=== PATIENT | male | born 1960 | race Caucasian/White ===

== ENCOUNTER 2019-05-04 11:24 | Emergency (ER) | payer BC, SELFPAY ==
[2019-05-04 11:30] VITALS: BP 133/108; PULSE 96; RESP 18; TEMP 36.9; O2SAT 95
--- NOTE | 2019-05-04 12:08 | ED.NAVMDI ---
HPI - Nausea/Vomiting/Diarrhea General Chief complaint: Nausea/Vomiting/Diarrhea Stated complaint: vomiting/diarrhea Time Seen by Provider: 05/04/19 12:04 Source: patient and RN notes reviewed Mode of arrival: ambulatory Limitations: no limitations History of Present Illness HPI Narrative: A 58 y/o male presents to the ED with N/V/D since 7:30 PM last night. He states that he has vomited roughly every 45-60 minutes and has had roughly 8 episodes of diarrhea since his symptoms began. He reports associated sharp epigastric ABD pain and mild SOB. He denies any melena, bloody stools, fevers, chills, or CP. MD elicited complaint: nausea, vomiting and diarrhea Onset (ago): hour(s) (last night) Associated nausea: Yes Associated abdominal pain: Yes Location of pain: epigastric Quality: sharp Associated symptoms: shortness of breath (mild) Related Data Home Medications Medication Instructions Recorded Confirmed ibuprofen 600 mg tablet 600 mg PO Q6H PRN 01/08/19 02/12/19 Allergies Allergy/AdvReac Type Severity Reaction Status Date / Time No Known Allergies Allergy Mild Verified 05/04/19 11:59 Review of Systems Review of Systems: All systems reviewed & are unremarkable except as noted in HPI and below Constitutional: Constitutional: Denies chills and Denies fever(s) Cardiovascular: Cardiovascular: Denies chest pain Respiratory: Respiratory: Reports dyspnea (mild) Gastrointestinal: Gastrointestinal: Reports abdominal pain (epigastric), Denies melena, Denies hematochezia, Reports diarrhea, Reports nausea and Reports vomiting PMFSH Past Medical History Medical History Acute medial meniscus tear of right knee Aftercare following surgery (02/12/19) Arthritis Collar bone fracture Gastro-esophageal reflux disease without esophagitis GERD (gastroesophageal reflux disease) Hyperglycemia Low serum HDL Renal disease Ulcer Surgical History Surgical History H/O arthroscopy of left knee History of left knee surgery Family History Family History Mother Patient's mother is in good health Sibling Patient's sister is in good health Father Family history of Parkinson's disease Social History Social History Smoking status: Current every day smoker Second hand tobacco smoke exposure: Yes Alcohol intake: current Gender identity (if verbalized by the patient): Male Exam Const: General: healthy appearing and no acute distress Nutritional Appearance: well nourished HENMT: Mouth: Yes lip normal and Yes dry mucous membranes Eyes: Conjunctivae: conjunctivae normal Pupils: Equal, round and reactive pupils present Resp: Effort & Inspection: normal respiratory effort Auscultation: clear to auscultation bilaterally Cardio: Rate: regular rate Rhythm: regular rhythm Heart sounds: no murmurs GI: GI Palp: Yes Soft to palpation and No Tenderness to palpation present (GI) Auscultation: normal bowel sounds Back/Spine/Pelvis: Other: Full ROM. Skin: General skin exam: normal color, dry skin and other (warm) Neuro: General: patient oriented x3 (alert) Speech: normal speech Extrem: General: full ROM Psych: Mental Status: mental status grossly normal Affect: normal affect Course Vital Signs Vital signs: Vital Signs Temperature 36.9 C 05/04/19 11:30 Pulse Rate 96 05/04/19 11:30 Respiratory Rate 18 05/04/19 11:30 Blood Pressure 133/108 H 05/04/19 11:30 Pulse Oximetry 95 05/04/19 11:30 Temperature 37.1 C 05/04/19 14:17 Pulse Rate 83 05/04/19 14:17 Respiratory Rate 18 05/04/19 14:17 Blood Pressure 138/83 05/04/19 14:17 Pulse Oximetry 96 05/04/19 14:17 MDM - Nausea/Vomiting/Diarrhea MDM Narrative Medical decision making narrative: Feeling better after treatment. Tolerating PO. Diff
--- NOTE | 2019-05-04 12:18 | ECG_ITS ---
Measurements Intervals [place] Rate: 88 P: 56 [place]: 165 QRS: 33 QRSD: 86 T: 81 QT: 347 QTc: 422 Interpretive Statements SINUS RHYTHM BORDERLINE ST-T WAVE ABNORMALITY- INF/LAT LEADS BORDERLINE ECG Electronically Signed On 05-04-2019 14:15:28 INTERPERSONAL COMMUNICATIONS PROFESSOR by Abel Gant D.O.
[2019-05-04 12:33] LABS: Basophils Percent Auto 0.2 % (0.2-1.2); Hematocrit 45.8 % (42.0-52.0); Hemoglobin 15.6 g/dL (14.0-18.0); Immature Granulocyte Absolute 0.04 K/mm3 (0.00-0.031); Immature Granulocyte Percent A 0.3 % (0-0.5); Lymphocytes Absolute Auto 0.32 K/mm3 (0.9-3.2); Lymphocytes Percent Auto 2.5 % (18.3-44.2); Mean Corpuscular HGB Conc 34.1 g/dl (32-36); Mean Corpuscular Hemoglobin 29.7 pg (26-34); Mean Corpuscular Volume 87.1 fl (80-100); Mean Platelet Volume 10.3 fl (7.4-10.4); Monocytes Absolute Auto 0.4 K/mm3 (0.1-0.6); Monocytes Percent Auto 2.9 % (2.6-8.5); Neutrophils Absolute Auto 12.1 K/mm3 (1.3-6.7); Neutrophils Percent Auto 94.1 % (45.5-73.1); Platelet Count Result 249 k/mm3 (150-375); Red Blood Count 5.26 M/mm3 (4.6-6.20); Red Cell Distribution Width 12.5 % (11.5-14.5); White Blood Count 12.8 K/mm3 (4.5-10.0)
[2019-05-04] MEDS: PANTOPRAZOLE SODIUM IV 40 MG VIAL IV PUSH (12:33)
[2019-05-04] MEDS: SODIUM CHLORIDE 0.9% IV 2,000 ML 999 ML IV CONT (12:33)
[2019-05-04] MEDS: ONDANSETRON INJ 4 MG/2 ML VIAL IV PUSH (12:33)
[2019-05-04 12:37] VITALS: BP 132/95; PULSE 88; RESP 18; O2SAT 94
[2019-05-04 12:46] LABS: Alanine Aminotransferase 46 U/L (4-50); Alkaline Phosphatase 77 U/L (38-126); Aspartate Amino Transferase 36 U/L (17-59); Bilirubin,Total 1.5 mg/dL (0.2-1.3); Blood Urea Nitrogen 21 mg/dL (9-20); Calcium 9.8 mg/dL (8.4-10.2); Carbon Dioxide 23 mmol/L (22-30); Chloride 100 mmol/L (98-107); Estimated CRCL calculation 103 ml/min; Estimated Glomerular Filt Rate > 60; Glucose 144 mg/dL (75-110); Lipase 36 U/L (23-300); Potassium 3.8 mmol/L (3.4-5.0); Sodium 138 mmol/L (137-145)
[2019-05-04 13:00] LABS: Add Urine Microscopic? YES; Appearance Urine Clear (Clear); Bacteria Urine Trace /hpf; Bilirubin Urine Negative (Negative); Blood Urine Negative (Negative); Color Urine Yellow (Yellow); Glucose Urine UA Negative (Negative); Ketones Urine Trace mg/dL (Negative); Leukocyte Esterase Ur Negative LEU/UL (Negative); Mucus Urine Moderate /lpf; Nitrate Urine Negative (Negative); Protein Urine 1+ mg/dL (Negative); RBC Urine 0-2 /hpf (0-2); Squamous Epithelial Cell Urine Few /hpf (Few); Urobilinogen Urine Negative mg/dL (<2.0); WBC Urine 0-3 /hpf
[2019-05-04 13:03] LABS: Troponin I < 0.012 ng/mL (0.000-0.034)
[2019-05-04] MEDS: BELLADONNA ALK/PHENOB ELIX 10 ML, MAG HYDROX/ALUMINUM HYD/SIMETH 30 ML, LIDOCAINE HCL 2... PO (13:47)
[2019-05-04 13:49] VITALS: BP 140/85; PULSE 90; RESP 20; O2SAT 96
[2019-05-04 14:17] VITALS: BP 138/83; PULSE 83; RESP 18; TEMP 37.1; O2SAT 96
== END 2019-05-04 14:26 | disposition home or self-care (01) ==
PROVIDERS: Emergency Provider Emergency Medicine; PCP Internal Medicine
DX: K52.9 Noninfective gastroenteritis and colitis, unspecified (principal); M19.90 Unspecified osteoarthritis, unspecified site; K21.9 Gastro-esophageal reflux disease without esophagitis; N28.9 Disorder of kidney and ureter, unspecified; F17.290 Nicotine dependence, other tobacco product, uncomplicated
CPT/HCPCS: 36415; 80053; 81001; 83690; 84484; 85025; 93005; 96361; 96374; 96375; 99284; A9270; C9113; J2405; J7030

== ENCOUNTER → 2021-03-16 01:02 | Outpatient (CLI) | payer BC, SELFPAY ==
[2021-03-17 18:18] LABS: SARS-CoV-2 RNA PCR Positive
== END ==
PROVIDERS: PCP Internal Medicine; Visit Provider Internal Medicine
DX: U07.1 COVID-19 (principal)
CPT/HCPCS: C9803; U0003; U0005

== ENCOUNTER 2021-11-06 16:09 | Outpatient (CLI) | payer BC, SELFPAY ==
--- NOTE | ~2021-11-06 | XR_ITS ---
EXAMINATION: XR hand LT min 3V DATE: 11/06/2021 17:41 INDICATION: Pain at the fingers at the left hand TECHNIQUE: Posteroanterior, oblique and lateral views of the left hand were obtained. COMPARISON: None. FINDINGS: Bone alignment is normal. No fracture. Mild polyarticular osteoarthritis at the midcarpal, triscaphe, first carpometacarpal, first metacarpophalangeal and all of the interphalangeal joints. No erosions to suggest inflammatory arthritis. 2 mm thin curvilinear metallic foreign body in the soft tissues al mookie the radial aspect of the second middle phalanx. Mild periarticular soft tissue swelling at severa l of the interphalangeal joints. IMPRESSION: 1. Mild polyarticular osteoarthritis with typical distribution throughout the left hand. No acute oss eous abnormality. 2. Very small linear metallic foreign body in the soft tissues the radial aspect of the second middle phalanx. Reviewed, dictated and finalized at location A. IMPRESSION: 1. Mild polyarticular osteoarthritis with typical distribution throughout the l eft hand. No acute osseous abnormality. 2. Very small linear metallic foreign body in the soft tissues the radial aspec t of the second middle phalanx.
== END 2021-11-06 16:10 | disposition home or self-care (01) ==
LOC: ANHIMG 16:11
PROVIDERS: PCP Internal Medicine; Visit Provider Internal Medicine
DX: M79.89 Other specified soft tissue disorders (principal)
CPT/HCPCS: 73120; 73130

== ENCOUNTER → 2022-01-14 14:24 | Outpatient (CLI) | payer BC, SELFPAY ==
--- NOTE | ~2022-01-14 | XR_ITS ---
XR shoulder LT min 2V DATE: 01/14/2022 14:33 INDICATION: Left shoulder pain for one month. No injury. TECHNIQUE: 4 views COMPARISON: None FINDINGS: No fracture or dislocation, periosteal reaction or bone destruction or abnormal soft tissue calcification. Normal alignment at the acromioclavicular and glenohumeral joints. There is degenerative spurring of the thoracic spine. IMPRESSION: Negative left shoulder Reviewed, dictated and finalized at location A. [employer] IMPRESSION: Negative left shoulder
== END ==
PROVIDERS: PCP Internal Medicine; Visit Provider Internal Medicine
DX: M25.512 Pain in left shoulder (principal)
CPT/HCPCS: 73030

== ENCOUNTER 2022-05-14 08:20 | Emergency (ER) | payer BC, SELFPAY ==
--- NOTE | ~2022-05-14 | XR_ITS ---
EXAMINATION: XR chest 2V DATE: 05/14/2022 08:48 INDICATION: Cough and shortness of breath. TECHNIQUE: Frontal and lateral views of the chest were obtained on 3 radiographs. COMPARISON: Chest single view 05/25/2008, CT abdomen and pelvis 01/07/2006 FINDINGS: The chest demonstrates clear lungs without pneumonia, pleural effusion, or pneumothorax. Th e heart size is normal. IMPRESSION: 1. No acute cardiopulmonary disease. Reviewed, dictated and finalized at location A.
--- NOTE | 2022-05-14 08:25 | ED.GENADULT ---
HPI - General Adult General Chief complaint: Upper Respiratory Infection Stated complaint: cough,lightheaded Source: patient and RN notes reviewed History of Present Illness HPI narrative: 61 yo M presents to urgent care with at side. Pt states he began feeling poorly last with a cough. 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 Pt states he was wearing a respirator mask but the carbon monoxide alarms did go off. Pt states he went outside when the alarms went off and was feeling lightheaded but went back in when he felt better and continued working for about an hour. Pt states his cough has worsened over the weekend and he is feeling lightheaded. Pt states the lightheadedness is worse with coughing. Pt reports a sore throat as well as SOB. Reports a sore chest with coughing. Denies any VALLE[place], LOC, chest pain, or vomiting. Related Data Allergies Allergy/AdvReac Type Severity Reaction Status Date / Time No Known Allergies Allergy Mild Verified 05/14/22 08:33 Review of Systems Review of Systems: CONSTITUTIONAL: Denies fever, chills, or sweats. EYES: Denies visual changes, redness, or discharge. ENT: sore throat CARDIOVASCULAR: chest pain with coughing RESPIRATORY: cough and dyspnea. GASTROINTESTINAL: Denies abdominal pain, nausea, vomiting, or diarrhea. GENITOURINARY: Denies dysuria or hematuria. SKIN: Denies rash or itching. MUSCULOSKELETAL: Denies back pain, joint pain, or myalgia. NEUROLOGIC: lightheadedness [facility] Past Medical History Medical History (Updated 05/14/22 @ 09:04 by Sondra Willinhgam APRN) Acute medial meniscus tear of right knee Aftercare following surgery (02/12/19) Arthritis Collar bone fracture Gastro-esophageal reflux disease without esophagitis GERD (gastroesophageal reflux disease) Hyperglycemia Low serum HDL Renal disease Ulcer Surgical History Surgical History H/O arthroscopy of left knee History of left knee surgery Family History Family History Mother Patient's mother is in good health Sibling Patient's sister is in good health Father Family history of Parkinson's disease Social History Social History (Updated 01/14/22 @ 14:00 by Kanchan Key MA) Smoking status: Current some day smoker Second hand tobacco smoke exposure: Yes Alcohol intake: current Lack of Transportation: No Lack of Food: Never True Current Housing: Decline to Answer Concerned About Future Housing: Decline to Answer Difficulty Paying Gas/Electric Bills: Decline to Answer Difficulty Paying for Meds: Decline to Answer Currently Unemployed: Decline to Answer Education: Decline to Answer Difficulty w/ Childcare or Family Care: Decline to Answer Gender identity (if verbalized by the patient): Male Comments At the time of my signature, I reviewed and agree with the nursing past medical, surgical, social, and family history. There is no relevant family history pertinent to the patient complaint. Exam Narrative: GENERAL: This is a well-nourished, well-developed patient, in no apparent distress. HEAD: normocephalic, atraumatic. EYES: PERRL. Sclera clear/white. Vision is grossly intact. EARS: External ears normal, auditory canals clear and without drainage, TMs normal without perforation. Hearing grossly intact. NOSE: External nose normal with no obvious nasal discharge, nares without redness, no rhinorrhea. THROAT: Mucous membranes moist, posterior pharynx clear. NECK: Neck supple, non-tender without lymphadenopathy, masses or thyromegaly. CARDIOVASCULAR: Regular rate and rhythm without murmurs, gallops, or rubs. RESPIRATORY: Clear to auscultation. Breath sounds equal bilaterally. No wheezes, rales, or rhonchi. pt excessively coughing GASTROINTESTINAL: Abdomen soft, non-tender, nondistended. Bowel sound
[2022-05-14 08:29] VITALS: BP 123/98; PULSE 66; RESP 23; TEMP 36.3; O2SAT 96
[2022-05-14] MEDS: methylPREDNISolone SOD SUCC 125 MG VIAL IM (08:54)
[2022-05-14] MEDS: IPRATROPIUM BR 0.02% INH SOLN 0.5 MG/2.5 ML VIAL INHALATION (08:55)
[2022-05-14] MEDS: ALBUTEROL SULFATE NEB 2.5 MG/3 ML INH INHALATION (09:28)
[2022-05-14 09:41] VITALS: PULSE 63; RESP 19; O2SAT 97
== END 2022-05-14 09:41 | disposition home or self-care (01) ==
PROVIDERS: Emergency Provider Nurse Practitioner Family; PCP Internal Medicine
DX: J40 Bronchitis, not specified as acute or chronic (principal); J02.9 Acute pharyngitis, unspecified; Z20.822 Contact with and (suspected) exposure to COVID-19; F17.290 Nicotine dependence, other tobacco product, uncomplicated; M19.90 Unspecified osteoarthritis, unspecified site; K21.9 Gastro-esophageal reflux disease without esophagitis
CPT/HCPCS: 71046; 87081; 87426; 87804; 87880; 94640; 96372; 99213; C9803; G0463; J2930

== ENCOUNTER 2022-07-31 01:29 | Day surgery (SDC) | payer BC, SELFPAY ==
[2022-07-11 15:35] VITALS: BMI 28.5
--- NOTE | 2022-07-30 16:02 | PM.HPGS ---
History of Present Illness History of Present Illness Consent: Risks, benefits, and alternatives have been discussed and questions answered. Patient agrees to proceed with procedure. Chief complaint: neoplasm screening Narrative: Raghu Verdugo is a 61 year old male referred for colon cancer screening. His last colonoscopy was 10 years ago. Review of Systems Review of Systems: All systems reviewed & are unremarkable except as noted in HPI and below PMFSH Past Medical History Medical History Acute medial meniscus tear of right knee Aftercare following surgery (02/12/19) Arthritis Collar bone fracture Gastro-esophageal reflux disease without esophagitis GERD (gastroesophageal reflux disease) Hyperglycemia Low serum HDL Renal disease Ulcer Surgical History Surgical History H/O arthroscopy of left knee History of left knee surgery Family History Family History Mother Patient's mother is in good health Sibling Patient's sister is in good health Father Family history of Parkinson's disease Social History Social History Smoking packs per day: 0.25 Smoking cigarettes per day: 5.0 Years smoked: 20 Smoking pack-years: 5.00 Smoking status: Current some day smoker Second hand tobacco smoke exposure: Yes Alcohol intake: current Alcohol use details: socially Substance use: never Substance use type: does not use Lack of Transportation: No Current Housing: Decline to Answer Concerned About Future Housing: No Difficulty Paying Gas/Electric Bills: No Difficulty Paying for Meds: No Currently Unemployed: No Education: Trade/Vocational Certificate Difficulty w/ Childcare or Family Care: No Living arrangements: with family Gender identity (if verbalized by the patient): Male Spiritual care concerns: No Meds Home Medications and Allergies Home Medications Medication Instructions Recorded Confirmed Type albuterol sulfate 90 mcg/actuation 2 inh inhalation Q4-6H PRN 06/05/22 07/11/22 Rx aerosol inhaler (ProAir HFA) shortness of breath or wheezing #8.5 grams Allergies Allergy/AdvReac Type Severity Reaction Status Date / Time No Known Allergies Allergy Mild Verified 07/11/22 15:35 Exam Const: General: alert Orientation/consciousness: patient oriented x3 Resp: Auscultation: clear to auscultation bilaterally Cardio: Rhythm: regular rhythm GI: GI Palp: Yes Soft to palpation and No Tenderness to palpation present (GI) Neuro: General: patient oriented x3 Assessment and Plan Assessment and plan (1) Colon cancer screening: Code(s): Z12.11 - Encounter for screening for malignant neoplasm of colon Status: Acute Assessment and Plan: Colonoscopy with possible biopsy or polypectomy or cautery or injection of substances.
[2022-07-31 09:13] VITALS: BP 118/80; PULSE 70; RESP 18; TEMP 36; O2SAT 98
[2022-07-31] MEDS: LACTATED RINGERS 1,000 ML 150 ML IV CONT (09:23)
--- NOTE | 2022-07-31 10:12 | WPDANESEPPF ---
Anes - Initial Pre Proc Eval Procedure: Operation Date: 07/31/22 10:30 Proposed Procedures p Screening Colonoscopy - Leno Antunez MD Date/Time: 07/31/22 10:12 Surgeon: Leno Antunez MD Pre Op Diagnosis: neoplasm screening Patient Data Age: 61 Gender: M Height: 1.8 m Weight: 87.1 kg Last Vital Signs Temp 96.8 F L 07/31/22 09:13 Pulse 70 07/31/22 09:13 Resp 18 07/31/22 09:13 BP 118/80 07/31/22 09:13 Pulse Ox 98 07/31/22 09:13 O2 Del Method Room Air 07/31/22 09:13 Allergies Allergy/AdvReac Type Severity Reaction Status Date / Time No Known Allergies Allergy Mild Verified 07/11/22 15:35 Home Medications Medication Instructions Recorded Confirmed Type albuterol sulfate 90 mcg/actuation 2 inh inhalation Q4-6H PRN 06/05/22 07/11/22 Rx aerosol inhaler (ProAir HFA) shortness of breath or wheezing #8.5 grams Patient hx anesthesia problems: none Family hx anesthesia problems: none Results Review: All pre-operative results and documents have been reviewed as part of the pre-operative evaluation. [facility] Past Medical History Medical History Acute medial meniscus tear of right knee Aftercare following surgery (02/12/19) Arthritis Collar bone fracture Gastro-esophageal reflux disease without esophagitis GERD (gastroesophageal reflux disease) Hyperglycemia Low serum HDL Renal disease Ulcer Surgical History Surgical History H/O arthroscopy of left knee History of left knee surgery Family History Family History Mother Patient's mother is in good health Sibling Patient's sister is in good health Father Family history of Parkinson's disease Social History Social History Smoking packs per day: 0.25 Smoking cigarettes per day: 5.0 Years smoked: 20 Smoking pack-years: 5.00 Smoking status: Current some day smoker Second hand tobacco smoke exposure: Yes Alcohol intake: current Alcohol use details: socially Substance use: never Substance use type: does not use Lack of Transportation: No Current Housing: Decline to Answer Concerned About Future Housing: No Difficulty Paying Gas/Electric Bills: No Difficulty Paying for Meds: No Currently Unemployed: No Education: Trade/Vocational Certificate Difficulty w/ Childcare or Family Care: No Living arrangements: with family Gender identity (if verbalized by the patient): Male Spiritual care concerns: No Anes - Eval Final PreProcedure Day of Procedure 07/31/22 10:12 Patient weight: normal Heart: regular rate and rhythm Lungs: clear to auscultation Airway: Mallampati scale class II Neurological: alert and oriented Last oral intake: >/= 8 hours ASA classification: II Emergent: no Anesthetic plan: proceed Anesthesia type and monitoring: general GIVS and standard monitoring Results Review: All pre-operative results and documents have been reviewed as part of the pre-operative evaluation. Informed Consent: The patient's anesthetic plan and its attendant risks and benefits were discussed with the patient/family/POA. Questions were solicited and answers provided to the satisfaction of the patient/family/POA.
[2022-07-31] MEDS: SIMETHICONE ORAL SUSPENSION 20 MG/0.3 ML 30 ML BOTTLE 0.6 ML IRRIGATION (10:21)
[2022-07-31 10:36] VITALS: BP 103/64; PULSE 63; RESP 15; O2SAT 98
[2022-07-31 10:46] VITALS: BP 111/82; PULSE 57; RESP 17; O2SAT 100
[2022-07-31 10:56] VITALS: BP 112/82; PULSE 54; RESP 14; O2SAT 97
== END 2022-07-31 11:03 | disposition home or self-care (01) ==
PROVIDERS: PCP Internal Medicine; Visit Provider Internal Medicine Gastroenterology
PROC: 0DJD8ZZ Inspection of Lower Intestinal Tract, Via Natural or Artificial Opening Endoscopic (ICD-10-PCS; CPT 45378; principal; 2022-07-31 10:30)
DX: Z12.11 Encounter for screening for malignant neoplasm of colon (principal); K57.30 Diverticulosis of large intestine without perforation or abscess without bleeding; K62.1 Rectal polyp; K21.9 Gastro-esophageal reflux disease without esophagitis; Z79.51 Long term (current) use of inhaled steroids; F17.210 Nicotine dependence, cigarettes, uncomplicated
CPT/HCPCS: 45380; 88305; J2001; J2704; J7120

== ENCOUNTER 2022-09-24 08:22 | Outpatient (CLI) | payer BC, SELFPAY ==
--- NOTE | ~2022-09-24 | CT_ITS ---
EXAMINATION: CT abdomen pelvis wo con DATE: 09/24/2022 08:38 INDICATION: Left-sided abdominal pain intermittently for one year. TECHNIQUE: Computed tomography (CT) of the abdomen and pelvis was performed without intravenous contr ast. Automated exposure control and iterative reconstruction technique were employed. Exam dose: 590 .42 mGy-cm total exam DLP. COMPARISON: 05/15/2014 gallbladder ultrasound examination 01/07/2006 CT renal scan FINDINGS: Right lower lobe calcified pulmonary granuloma. The lung bases are clear of infiltrate or c onsolidation. Normal heart size. No pericardial or pleural effusion. The liver, gallbladder, bile ducts, spleen, pancreas, and adrenal glands are unremarkable. Approximately 3 cm upper pole left renal cyst Approximately 7 mm probable exophytic posterior lateral left upper pole renal cyst. Approximately 6 mm posterior lower pole right renal probable cyst No urinary tract calculi or hydroureteronephrosis. There is moderate diffuse thickening of the urinary bladder, likely due to moderately prominent prost atomegaly. There are bilateral fat-containing inguinal hernias. Normal caliber of the abdominal aorta. No intraperitoneal or retroperitoneal or pelvic mass lesion or adenopathy or ascites is detected. There are nonenlarged periaortic and aortocaval and mesenteric lymph nodes. Normal appendix. Diverticulosis of the colon; no CT evidence of diverticulitis. No bowel obstruction or intraperitoneal free air is detected. Degenerative changes of the thoracic and lumbar spine IMPRESSION: Bilateral probable cysts Normal appendix Diverticulosis of the colon; no CT evidence of diverticulitis Prostatomegaly Reviewed, dictated and finalized at Location A. Reviewed, dictated and finalized at location L.
== END 2022-09-24 08:23 | disposition home or self-care (01) ==
PROVIDERS: PCP Internal Medicine; Visit Provider Internal Medicine
DX: K57.30 Diverticulosis of large intestine without perforation or abscess without bleeding (principal); N40.0 Benign prostatic hyperplasia without lower urinary tract symptoms
CPT/HCPCS: 74176

== ENCOUNTER 2022-10-13 08:52 | Emergency (ER) | payer OTHER, BC, SELFPAY ==
--- NOTE | ~2022-10-13 | XR_ITS ---
EXAMINATION: XR ankle LT min 3V DATE: 10/13/2022 09:19 INDICATION: Left ankle pain TECHNIQUE: Anteroposterior, lateral, mortise, and additional oblique view of the ankle were obtained. COMPARISON: None. FINDINGS: There is anterior soft tissue swelling overlying the distal tibia and fibula. Bone alignmen t is normal. There is no fracture. Posterior and plantar calcaneal enthesophytes are noted. IMPRESSION: 1. No acute osseous abnormality. Reviewed, dictated and finalized at location A.
--- NOTE | ~2022-10-13 | XR_ITS ---
EXAMINATION: XR tibia fibula LT 2V INDICATION: Left leg pain TECHNIQUE: Two views of the left tibia and fibula are obtained on four radiographs COMPARISON: None available FINDINGS: Bone alignment is normal. There is no fracture. There is anterior soft tissue swelling of t he lower leg. Posterior and plantar calcaneal enthesophytes are noted. There is mild osteoarthritis o f the knee. IMPRESSION: 1. No acute osseous abnormality. Reviewed, dictated and finalized at location A.
[2022-10-13 09:00] VITALS: BP 127/80; PULSE 67; RESP 16; TEMP 37.2; O2SAT 100
--- NOTE | 2022-10-13 09:04 | ED.LOWEXIN ---
HPI - Extremity Injury (Lower) General Chief Complaint: Extremity Injury, Lower Stated Complaint: left ankle pain Time Seen by Provider: 10/13/22 10:03 Source: patient and RN notes reviewed Mode of arrival: ambulatory Limitations: no limitations History of Present Illness HPI Narrative: 62-year-old male presents with concern for crush injury to his left ankle. He reports he a tree branch fall on his ankle and he was trapped beneath that for about 15 minutes. Reports he tried to call 911 and was unable to get through, he finally was able to get through to his son who came and helped him. He reports pain at the ankle, he has a few abrasions to his left lower leg. complaint: leg injury Related Data Allergies Allergy/AdvReac Type Severity Reaction Status Date / Time No Known Allergies Allergy Mild Verified 10/13/22 09:08 Review of Systems Review of Systems: CONSTITUTIONAL: Denies malaise, chills, sweats, or fever. SKIN: Denies rash or itching, redness, warmth, swelling.. Reports abrasions to bilateral lower legs MUSCULOSKELETAL: Reports left lower leg and ankle pain NEUROLOGIC: Denies numbness, weakness All systems reviewed & are unremarkable except as noted in HPI and below PMFSH Past Medical History Medical History (Updated 10/13/22 @ 10:07 by Ama Ba NP) Acute medial meniscus tear of right knee Aftercare following surgery (02/12/19) Arthritis Collar bone fracture Gastro-esophageal reflux disease without esophagitis GERD (gastroesophageal reflux disease) Hyperglycemia Low serum HDL Renal disease Ulcer Surgical History Surgical History H/O arthroscopy of left knee History of left knee surgery Family History Family History Mother Patient's mother is in good health Sibling Patient's sister is in good health Father Family history of Parkinson's disease Social History Social History Smoking packs per day: 0.25 Smoking cigarettes per day: 5.0 Years smoked: 20 Smoking pack-years: 5.00 Smoking status: Current some day smoker Second hand tobacco smoke exposure: Yes Alcohol intake: current Alcohol use details: socially Substance use: never Substance use type: does not use Lack of Transportation: No Current Housing: Decline to Answer Concerned About Future Housing: No Difficulty Paying Gas/Electric Bills: No Difficulty Paying for Meds: No Currently Unemployed: No Education: Trade/Vocational Certificate Difficulty w/ Childcare or Family Care: No Living arrangements: with family Gender identity (if verbalized by the patient): Male Spiritual care concerns: No Comments At time of signature, agree with nursing past medical, surgical, social and family history. There is no relevant family history pertinent to the presenting complaint Exam Narrative: GENERAL: Well-appearing, well-nourished, and in no acute distress. HEAD: Normocephalic, atraumatic. EYES: PERRLA, conjunctivae clear NECK: Supple. CHEST: Speaks in full sentences. No respiratory distress. HEART: Regular rate and rhythm. Normal and equal peripheral pulses. EXTREMITIES: Left lower leg, ankle, foot, digits have grossly normal strength and sensation, normal range of motion. No edema or ecchymosis. Normal sensation with sensitivity to light touch and pain. Medial and lateral ankle tenderness. No open wounds, no skin tenting, no devitalized tissue or atrophy, no trophic changes, no obvious deformity, alignment normal, nearby joints and structures intact. Distal pulses palpable and equal bilaterally, skin warm, dry, pink. Capillary refill less than 3 seconds. No signs of compartment syndrome SKIN: Warm, dry, no rash. NEURO: Alert and oriented x3. PSYCH: Normal mood and affect Course Course Emergency Course: Patient do
== END 2022-10-13 10:20 | disposition home or self-care (01) ==
PROVIDERS: Emergency Provider Nurse Practitioner; PCP Internal Medicine
DX: S97.02XA Crushing injury of left ankle, initial encounter (principal); W20.8XXA Other cause of strike by thrown, projected or falling object, initial encounter; M19.90 Unspecified osteoarthritis, unspecified site; K21.9 Gastro-esophageal reflux disease without esophagitis; F17.210 Nicotine dependence, cigarettes, uncomplicated
CPT/HCPCS: 73590; 73610; 99214; G0463

== ENCOUNTER → 2022-10-23 08:05 | Outpatient (CLI) | payer BC, SELFPAY ==
--- NOTE | ~2022-10-23 | MR_ITS ---
EXAMINATION: MR knee LT wo con DATE: 10/23/2022 08:40 INDICATION: Unspecified internal derangement of left knee. Medial left knee pain. TECHNIQUE: Magnetic resonance imaging (MRI) of the left knee was performed without intravenous contra st. Sequences included axial PD-weighted FS FSE, coronal PD-weighted FSE and PD-weighted FS FSE, sagi ttal PD-weighted FSE, and sagittal T2-weighted FS FSE. COMPARISON: None. FINDINGS: Medial compartment: Medial meniscus is normal. There is shallow partial-thickness cartilage loss of tibial condyle and fe moral condyle. There is deep partial thickness cartilage loss of femoral condyle involving the centra l articular surface. Lateral compartment: Lateral meniscus is normal. Lateral compartment cartilage is normal. Patellofemoral compartment: There is deep partial-thickness cartilage loss of patellar medial facet with mild subchondral edema-l akshat marrow signal intensity and intra-articular osteophyte. There is shallow partial-thickness cartil age loss of patellar lateral facet. There is cartilage surface irregularity of trochlea. Ligaments and tendons: Anterior cruciate ligament is enlarged, consistent with mucoid degeneration. There are intraosseous g anglia in distal femur and proximal tibia near the anterior cruciate ligament attachments. Posterior cruciate ligament is enlarged with increased signal intensity, consistent mucoid degeneration. There is a complete tear of medial collateral ligament. There are changes of prior sprain of fibular collat eral ligament characterized by thickening and increased signal intensity. There is mild patellar tend inopathy. Fluid: There is a moderate-sized knee joint effusion. There is thickening of the medial plica. There is trac e fluid in a Jeffries's cyst. There is mild prepatellar and superficial infrapatellar bursitis. IMPRESSION: 1. Moderate chondrosis of medial and patellofemoral compartments. 2. Complete tear of medial collateral ligament. 3. Mucoid degeneration involving anterior cruciate ligament and posterior cruciate ligament. 4. Moderate-sized knee joint effusion. Reviewed, dictated and finalized at location A. IMPRESSION: 1. Moderate chondrosis of medial and patellofemoral compartments. 2. Complete tear of medial collateral ligament. 3. Mucoid degeneration involving anterior cruciate ligament and posterior cruci ate ligament. 4. Moderate-sized knee joint effusion.
== END ==
PROVIDERS: PCP Internal Medicine; Visit Provider Orthopaedic Surgery
DX: M23.92 Unspecified internal derangement of left knee (principal)
CPT/HCPCS: 73721

== ENCOUNTER 2023-05-23 13:24 | Outpatient (CLI) | payer BC, SELFPAY ==
--- NOTE | ~2023-05-23 | XR_ITS ---
Left Shoulder Technique: AP and scapular Y views were obtained. Clinical History: Pain Findings: No fracture or dislocation is seen. Osseous alignment is anatomic. The glenohumeral and acr omioclavicular joint spaces are preserved. Soft tissues are unremarkable. Impression: Unremarkable left shoulder radiographs. Reviewed, dictated and finalized at [facility]. Impression: Unremarkable left shoulder radiographs.
== END 2023-05-23 13:25 | disposition home or self-care (01) ==
PROVIDERS: PCP Internal Medicine; Visit Provider Orthopaedic Surgery
DX: M25.512 Pain in left shoulder (principal)
CPT/HCPCS: 73030

== ENCOUNTER 2023-06-25 16:14 | Emergency (ER) | payer BC, SELFPAY ==
--- NOTE | 2023-06-25 16:22 | ED.WOUNDLAC ---
HPI - Wound/Laceration General Chief Complaint: Wound/Laceration Stated Complaint: FINGER LACERATION Time Seen by Provider: 06/25/23 16:28 Source: patient and RN notes reviewed Mode of arrival: ambulatory Limitations: no limitations History of Present Illness HPI narrative: 62-year-old male presents with concern for laceration to the palmar aspect of the 2nd digit of the left hand. Reports he did it prior to arrival with a razor blade. He is not up-to-date on his tetanus vaccination Related Data Home Medications Medication Instructions Recorded Confirmed No Home Medications 10/18/22 06/16/23 Allergies Allergy/AdvReac Type Severity Reaction Status Date / Time No Known Allergies Allergy Mild Verified 06/16/23 10:03 Review of Systems Review of Systems: CONSTITUTIONAL: Denies malaise, chills, sweats, or fever. SKIN: Reports laceration to the 2nd digit of the left hand MUSCULOSKELETAL: Denies muscle skeletal pain NEUROLOGIC: Denies numbness, weakness All systems reviewed & are unremarkable except as noted in HPI and below PMFSH Past Medical History Medical History (Updated 06/25/23 @ 16:36 by Ama Ba NP) Acute medial meniscus tear of right knee Aftercare following surgery (02/12/19) Arthritis Collar bone fracture Gastro-esophageal reflux disease without esophagitis GERD (gastroesophageal reflux disease) Hyperglycemia Low serum HDL Renal disease Ulcer Surgical History Surgical History H/O arthroscopy of left knee History of left knee surgery Family History Family History Mother Patient's mother is in good health Sibling Patient's sister is in good health Father Family history of Parkinson's disease Social History Social History Smoking packs per day: 0.25 Smoking cigarettes per day: 5.0 Years smoked: 20 Smoking pack-years: 5.00 Smoking status: Current some day smoker Second hand tobacco smoke exposure: Yes Alcohol intake: current Alcohol use details: socially Substance use: never Substance use type: does not use Lack of Transportation: No Current Housing: Decline to Answer Concerned About Future Housing: No Difficulty Paying Gas/Electric Bills: No Difficulty Paying for Meds: No Currently Unemployed: No Education: Trade/Vocational Certificate Difficulty w/ Childcare or Family Care: No Living arrangements: with family Gender identity (if verbalized by the patient): Male Spiritual care concerns: No Comments At time of signature, agree with nursing past medical, surgical, social and family history. There is no relevant family history pertinent to the presenting complaint Exam Narrative: GENERAL: Well-appearing, well-nourished, and in no acute distress. HEAD: Normocephalic, atraumatic. EYES: PERRLA, conjunctivae clear ENT: Mucous membranes moist. NECK: Supple. No lymphadenopathy CHEST: Clear to auscultation. No respiratory distress. HEART: Regular rate and rhythm. SKIN: Warm, dry. 1.5 cm superficial laceration, linear, noted to the palmar aspect of the 2nd digit of the left hand. NEURO: Alert and oriented x3. PSYCH: Normal mood and affect Course Course Emergency Course: Patient is aware of diagnosis, understands and agrees to treatment plan. Anticipatory guidance given. Patient agrees to follow-up as directed and is aware of reasons to seek care at the emergency department. Portions of this record may have been created with voice recognition software Level of Care: Express Care Visit Vital Signs Vital signs: Reviewed. Procedures Laceration Laceration 1: Date: 06/25/23 Time: 16:34 Site: hand Side (If applicable): right Size (cm): 1.5 Description: linear Depth: simple, single layer
[2023-06-25 16:26] VITALS: BP 134/90; PULSE 65; RESP 16; TEMP 36.8; O2SAT 100
[2023-06-25 16:27] VITALS: BP 134/90; PULSE 65; RESP 16; TEMP 36.8; O2SAT 100
[2023-06-25] MEDS: TETANUS,DIPHTHERIA,AC PERTUSSIS ADULT (0.5 ML) BOOSTRIX IM (16:35)
== END 2023-06-25 16:48 | disposition home or self-care (01) ==
PROVIDERS: Emergency Provider Nurse Practitioner; PCP Physician Assistant
DX: S61.211A Laceration without foreign body of left index finger without damage to nail, initial encounter (principal); W26.8XXA Contact with other sharp object(s), not elsewhere classified, initial encounter; Z23 Encounter for immunization; F17.210 Nicotine dependence, cigarettes, uncomplicated; M19.90 Unspecified osteoarthritis, unspecified site; K21.9 Gastro-esophageal reflux disease without esophagitis
CPT/HCPCS: 12001; 90471; 90715; 99212; G0463

== ENCOUNTER 2023-06-28 07:30 | Outpatient (CLI) | payer BC, SELFPAY ==
--- NOTE | ~2023-06-28 | MR_ITS ---
EXAMINATION: MR shoulder LT wo con DATE: 06/28/2023 08:43 INDICATION: Impingement syndrome of left shoulder. Left shoulder pain. TECHNIQUE: Magnetic resonance imaging (MRI) of the left shoulder was performed without intravenous co ntrast. Sequences included axial PD-weighted FS FSE, coronal oblique PD-weighted FS FSE and T2-weight ed FS FSE, and sagittal oblique T2-weighted FS FSE and T1-weighted FSE. COMPARISON: Left shoulder radiographs 05/23/2023 FINDINGS: Coracoacromial arch: The acromion undersurface is curved in morphology (type II). There is severe acromioclavicular joint osteoarthritis. There is mild subacromial/subdeltoid bursitis. Rotator cuff: There is moderate supraspinatus tendinopathy. There is severe infraspinatus tendinopathy. There is an interstitial partial tear near the myotendinous junction measuring 14 mm anteroposterior by 15 mm pr oximal to distal by 70% tendon thickness. Teres minor tendon is normal. There is mild subscapularis t endinopathy. There is no asymmetric fatty atrophy of the rotator cuff muscle bellies. Biceps tendon and glenoid labrum: There is a partial tear of biceps tendon. Biceps tendon is in bicipital groove. There is degeneration of the glenoid labrum without well-defined tear. Fluid: There is a moderate-sized glenohumeral joint effusion. Bones/cartilage: There is shallow partial-thickness cartilage loss of glenoid and humeral head. IMPRESSION: 1. Partial tear of infraspinatus tendon. 2. Partial tear of biceps tendon. 3. Moderate sized glenohumeral joint effusion. 4. Mild glenohumeral joint chondrosis. 5. Severe acromioclavicular joint osteoarthritis. Reviewed, dictated and finalized at location E.
== END 2023-06-28 07:31 | disposition home or self-care (01) ==
PROVIDERS: PCP Physician Assistant; Visit Provider Physician Assistant Surgical
DX: M75.42 Impingement syndrome of left shoulder (principal); M19.012 Primary osteoarthritis, left shoulder; M25.412 Effusion, left shoulder
CPT/HCPCS: 73221

== ENCOUNTER 2023-09-09 01:43 | Day surgery (SDC) | payer MEDICARE, BC, SELFPAY ==
[2023-08-29 14:19] VITALS: BMI 26.5
--- NOTE | 2023-08-29 14:20 | PC.NURSE ---
Report to the Outpatient Waiting Room, entrance under the green pavilion located off [facility], at time _0830_ on date _[id number]_. Planned Procedure Time: _1030_. Time changes happen often and if your time is changed the preop area will call you the afternoon before. - You and your visitor will be asked to self-screen and do not enter if you have any COVID symptoms. - A mask is optional within the hospital at this time. Patients may have clear liquids (water, carbonated beverages, clear teas, apple juice) until 3 hours prior to surgery with a maximum of 20 ounces. - No food from midnight until time of surgery Take the following medications with a SIP of water the morning of surgery: ____None DO NOT STOP ANY OF YOUR OTHER PRESCRIPTION MEDICATIONS PRIOR TO SURGERY ?EXCEPT THE FOLLOWING Medications to discontinue per physician Ibuprofen Date to take last [id number] Please no make-up, nail maltese, hairspray, perfume, deodorant, or body powder the day of surgery. No jewelry (including any body piercings) or valuables the day of surgery, leave them at home. Please take a shower or bath the night before, or the morning of, surgery with an antibacterial soap. Wear comfortable, loose fitting clothing. - Jewelry must be removed prior to entering the operating room. Rings and piercings that are not removed may be cut off. - The hospital will not accept responsibility for valuables. - Please leave all valuables, including medications, at home the day of surgery. If you are going home after surgery, a licensed team cdl driver must drive you home. - NO public transportation without another adult if you receive anesthesia. - We recommend that an adult stay with you for 24 hours following discharge. - We also recommend that you do not drive, make important decision, drink alcoholic beverages, or take any drugs that were not prescribed by your health care provider for at least 24 hours after your discharge time. Follow any additional instructions given to you from your surgeon. If you or anyone in your household have experienced Covid symptoms in the past week, please notify your surgeon or the nurse liaison at the phone number below for possible testing. Telephone instructions given to _Don and asked if any additional questions and then verbalized understanding. Patient advised to call surgeon office or pre surgery nurse liaison [phone] if any additional questions.
[2023-09-09] VITALS (11 sets, daily range): BP systolic 75–113; BP diastolic 51–78; PULSE 50–62; RESP 14–18; TEMP 36.1–36.4; O2SAT 95–100; BMI 25.9
--- NOTE | 2023-09-09 08:00 | WPDANESEPPF ---
Anes - Initial Pre Proc Eval Procedure: Operation Date: 09/09/23 10:30 Proposed Procedures p Left Shoulder Arthroscopy, Rotator Cuff Repair, Subacromial Decompression, Biceps Tenodesis - Alpesh Booth MD Date/Time: 09/09/23 08:00 Surgeon: Alpesh Booth MD Pre Op Diagnosis: left shoulder partial rot cuff tear Patient Data Age: 63 Gender: M Height: 1.8 m Weight: 86.4 kg Allergies Allergy/AdvReac Type Severity Reaction Status Date / Time No Known Allergies Allergy Mild Verified 09/09/23 09:59 Home Medications Medication Instructions Recorded Confirmed Type ibuprofen 200 mg tablet 400 mg PO Q6H PRN Pain 08/29/23 08/29/23 History Patient hx anesthesia problems: none Family hx anesthesia problems: none Results Review: All pre-operative results and documents have been reviewed as part of the pre-operative evaluation. [facility] Past Medical History Medical History (Updated 08/27/23 @ 09:01 by Kiera Murillo MA) Acute medial meniscus tear of right knee Aftercare following surgery (02/12/19) Arthritis Collar bone fracture Gastro-esophageal reflux disease without esophagitis GERD (gastroesophageal reflux disease) Hyperglycemia Low serum HDL Renal disease Ulcer Surgical History Surgical History H/O arthroscopy of left knee History of left knee surgery Family History Family History Mother Patient's mother is in good health Sibling Patient's sister is in good health Father Family history of Parkinson's disease Social History Social History Smoking packs per day: 0.25 Smoking cigarettes per day: 5.0 Years smoked: 10 Smoking pack-years: 2.50 Smoking status: Current every day smoker Tobacco type: cigarettes Second hand tobacco smoke exposure: Yes Alcohol intake: current Drinks per week: 6 Alcohol use details: socially Substance use: never Substance use type: marijuana Other substance usage details: gummies at bedtime Lack of Transportation: No Current Housing: Decline to Answer Concerned About Future Housing: No Difficulty Paying Gas/Electric Bills: No Difficulty Paying for Meds: No Currently Unemployed: No Education: Trade/Vocational Certificate Difficulty w/ Childcare or Family Care: No Living arrangements: with family Gender identity (if verbalized by the patient): Male Spiritual care concerns: No Anes - Eval Final PreProcedure Day of Procedure 09/09/23 08:00 Patient weight: overweight Heart: regular rate and rhythm Lungs: clear to auscultation Airway: Mallampati scale class II Neurological: alert and oriented Last oral intake: >/= 8 hours ASA classification: II Emergent: no Anesthetic plan: proceed Anesthesia type and monitoring: general ETT and standard monitoring Results Review: All pre-operative results and documents have been reviewed as part of the pre-operative evaluation. Informed Consent: The patient's anesthetic plan and its attendant risks and benefits were discussed with the patient/family/POA. Questions were solicited and answers provided to the satisfaction of the patient/family/POA.
[2023-09-09] MEDS: ACETAMINOPHEN 500 MG TABLET 1000 MG PO (09:11)
[2023-09-09] MEDS: KETOROLAC 15 MG/ML VIAL (*BKC) IV PUSH (09:11)
--- NOTE | 2023-09-09 10:06 | WPDHPUPDATE1 ---
History and Physical Update Update Date/Time: 09/09/23 10:06 History and Physical has been reviewed, including an updated exam of the patient. There are NO changes in the patient's condition. Risks, benefits, and alternatives have been discussed and questions answered. Patient agrees to proceed with procedure.
--- NOTE | 2023-09-09 10:18 | WPDANESPNB ---
Anes - Peripheral Nerve Block Date/Time: 09/09/23 10:18 I have discussed with the patient/family/POA the placement of a peripheral nerve block for post-operative pain management, including associated risks, benefits, complications, and side effects. Alternative methods of post-operative analgesia were detailed. Questions were solicited and answers provided to the satisfaction of the patient/family/POA. Time-Out: A pre-procedural Time-Out was completed immediately before starting the procedure and confirmed: Patient Identification, Site, Procedure, Patient Position and the Availability of Requisite Equipment. Clinical Indications: Acute post-operative pain management requested by the operative surgeon. Nerve Block Insertion Note Anes-nerve block: interscalene Patient position: supine Skin prep: chlorhexidine Needle: 22 gauge, stimulating, insulated echogenic needle. Needle length: 50 mm Technique: ultrasound Injectate: bupivacaine 0.5% with epi 5 mcg/ml (30cc- no epi) Observations: tolerated well Complications: none Procedure start time:: 1020 Procedure end time:: 1024
[2023-09-09] MEDS: ceFAZolin 2 GM/D5W 50 ML 2 GM/50 ML BAG IVPB (10:40)
[2023-09-09] MEDS: EPINEPHrine HCL INJ 1 MG/ML AMPUL 3 MG IRRIGATION (11:34)
[2023-09-09] MEDS: LACTATED RINGERS 1,000 ML 30 ML IV CONT ×2 (12:49)
[2023-09-09] MEDS: fentaNYL CITRATE INJ (*CRX) 100 MCG/2 ML VIAL 25 MCG IV PUSH ×3 (13:00→13:10)
[2023-09-09] MEDS: ONDANSETRON INJ 4 MG/2 ML VIAL IV PUSH (13:15)
--- NOTE | 2023-09-09 15:48 | W.PM.PROC2 ---
Procedure Note - Detailed Date of Procedure 09/09/23 Pre-op Diagnosis 1. Left shoulder partial rotator cuff tear 2. Long head biceps tendinosis 3. Subacromial impingement syndrome. Post-op Diagnosis Same (1. Rotator cuff tear 2. Subacromial impingement 3. Biceps tendinosis 4. Degenerative labral tear) Procedure Performed Left shoulder 1. Arthroscopic rotator cuff repair 2. Arthroscopic subacromial decompression 3. Arthroscopic biceps tenodesis Surgeon Alpesh Booth MD Recruiter Account Manager Gayla Thompson PA-C Anesthesia General and Regional ( interscalene block) Findings Mid grade partial supra and infaspinatous rotator cuff tear. The tear involved a large portion of the articular side the superior cuff. Also mild fraying at the musculotendinous junction the infraspinatus. Evidence for subacromial impingement with frayed area under the anterolateral acromion. Significantly frayed approximately 30% of the biceps tendon near the intertubercular groove. Minimal partial fraying of the upper aspect of the subscapularis attachment; essentially stable and otherwise healthy tendon. Collagen implant Regeneten repair deemed optimal for the partial-thickness rotator cuff tear. There was mild degeneration on the articular side but overall tendon health and quality appeared good. There was significant hyperemia but otherwise healthy-appearing tendon fibers. The large implant covered the defect very well. For URMILA soft tissue anchors and 2 peek bone anchor secured the implant well. Moderate acromioplasty performed. CA ligament released. The articular cartilage was healthy. There was a moderate capsulitis without contracture. The biceps was tenodesed arthroscopically with a SwiveLock anchor and the loop and tack system. It was released from the superior labrum which was gently debrided as needed. Description of Procedure Preoperative antibiotics were given. An interscalene block was administered in the preoperative area. The patient was bought brought to the operating room. A general anesthetic was administered. The patient was carefully positioned in the [beach chair] position. The head and neck were carefully positioned. The non operative extremity was also carefully positioned. The shoulder was prepped and draped in the usual sterile fashion. Examination was performed. Standard posterior and anterior arthroscopic portals were established. Inflow achieved with the arthroscopic pump using saline and epinephrine. The glenohumeral joint was carefully inspected. The articular cartilage was healthy. There was a low to mid grade articular sided tear of the supra and infraspinatus. The tear was notably quite posteriorly extended. Tissues were hyperemic and there was a moderate capsulitis without contracture. The subscapularis had mild early split fraying on the under surface without significant detachment. Attention was turned to the subacromial space. The bursa was notably hypertrophic. A complete bursectomy was performed. The posterior musculotendinous junction of the infraspinatus had superficial fraying but no significant structural defect. There was some softening at the central portion of the super and infraspinatus but the tissue quality was otherwise good on the bursal side. There was significant hyperemia consistent with the previous findings. Impingement on the undersurface of the acromion was confirmed visually and this was treated with acromioplasty and CA ligament release. The Regeneten implant was inserted through an accessory lateral portal. It covered the defect very well. For URMILA soft tissue anchors were placed along the medial margin. Two bone anchors were placed laterally. The arthroscopic instruments were removed. The wounds were closed with 3-0 Monocryl subcuticular suture and steri strips. There were no complications. A sling was applied and the patient brought to the recovery room. Physician conservation assistant, KIRSTEN Pradhan
== END 2023-09-09 14:58 | disposition home or self-care (01) ==
PROVIDERS: PCP Physician Assistant; Visit Provider Orthopaedic Surgery
PROC: (CPT 29805; principal; 2023-09-09 10:30)
DX: M75.112 Incomplete rotator cuff tear or rupture of left shoulder, not specified as traumatic (principal); M75.42 Impingement syndrome of left shoulder; M75.22 Bicipital tendinitis, left shoulder; M75.82 Other shoulder lesions, left shoulder; G89.18 Other acute postprocedural pain; F17.210 Nicotine dependence, cigarettes, uncomplicated; F12.90 Cannabis use, unspecified, uncomplicated
CPT/HCPCS: 29827; 29828; 29826; 64415; A4565; A9270; C1713; J0171; J0690; J1100; J1885; J2250; J2405; J2704; J3010; J7120

== ENCOUNTER 2024-07-13 08:02 | Outpatient (CLI) | payer BC, MEDICARE, SELFPAY ==
[2024-07-13 08:57] LABS: Prothrombin Time 13.4 Seconds (11.1-14.7)
[2024-07-13 08:58] LABS: Anion Gap 7 mmol/L (4-12); Blood Urea Nitrogen 18 mg/dL (9-20); Calcium 9.1 mg/dL (8.4-10.2); Carbon Dioxide 30 mmol/L (22-30); Chloride 103 mmol/L (98-107); Estimated Glomerular Filt Rate > 60; Glucose 91 mg/dL (65-110); Partial Thromboplastin Time 26.9 Seconds (22.3-36.8); Potassium 4.5 mmol/L (3.4-5.0); Sodium 140 mmol/L (137-145)
== END 2024-07-13 08:03 | disposition home or self-care (01) ==
PROVIDERS: Anesthesiology; PCP Nurse Practitioner; Visit Provider Surgery
DX: Z01.818 Encounter for other preprocedural examination (principal); N28.9 Disorder of kidney and ureter, unspecified; K40.90 Unilateral inguinal hernia, without obstruction or gangrene, not specified as recurrent
CPT/HCPCS: 36415; 80048; 85610; 85730; 86850; 86900; 86901

== ENCOUNTER 2024-07-20 00:31 | Day surgery (SDC) | payer BC, MEDICARE, SELFPAY ==
[2024-07-06 14:34] VITALS: BMI 26.9
--- NOTE | 2024-07-06 14:45 | PC.NURSE ---
Report to the Outpatient Waiting Room, entrance under the green pavilion located off [facility], at time _1130am on date _07/20/24 . Planned Procedure Time: _130pm . Time changes happen often and if your time is changed the preop area will call you the afternoon before. - You and your visitor will be asked to self-screen and do not enter if you have any COVID symptoms. Please call surgeon if you need to reschedule. - A mask is optional within the hospital at this time. Patients may have clear liquids (water, carbonated beverages, clear teas, apple juice) until 3 hours prior to surgery with a maximum of 20 ounces. - No food from midnight until time of surgery and no smoking, or chewing tobacco (or any form of nicotine). No chewing gum, candy or mints. (10:30am) Take only the following medications with a SIP of water on the morning of surgery: ___Tylenol as needed DO NOT STOP ANY OF YOUR OTHER PRESCRIPTION MEDICATIONS PRIOR TO SURGERY EXCEPT THE FOLLOWING Hold all vitamins and supplements for 3 days per anesthesiologist. Medications to discontinue per physician NSAIDS/ALEVE/MOTRIN/ASPIRIN for [address] Cortez Date to take last dose____07/11/24 Please no make-up, nail syriac, hairspray, perfume, deodorant, or body powder the day of surgery. No jewelry (including any body piercings) or valuables the day of surgery, leave them at home. Please take a shower or bath the night before, or the morning of, surgery with an antibacterial soap. Wear comfortable, loose fitting clothing. Overnight bag/cell application software engineer - Jewelry must be removed prior to entering the operating room. Rings and piercings that are not removed may be cut off. - The hospital will not accept responsibility for valuables. - Please leave all valuables, including medications, at home the day of surgery. If you are going home after surgery, a licensed van driver helper must drive you home. - NO public transportation without another adult if you receive anesthesia. - We recommend that an adult stay with you for 24 hours following discharge. - We also recommend that you do not drive, make important decision, drink alcoholic beverages, or take any drugs that were not prescribed by your health care provider for at least 24 hours after your discharge time. Follow any additional instructions given to you from your surgeon. Telephone instructions given to __Patient and asked if any additional questions and then verbalized understanding. Patient advised to call surgeon office or pre surgery nurse liaison [phone] if any additional questions.
[2024-07-20] VITALS (9 sets, daily range): BP systolic 96–109; BP diastolic 54–78; PULSE 55–71; RESP 12–16; TEMP 36.1–36.6; O2SAT 96–100
[2024-07-20] MEDS: ACETAMINOPHEN 500 MG TABLET 1000 MG PO (12:25)
[2024-07-20] MEDS: LACTATED RINGERS 1,000 ML 30 ML IV CONT ×3 (12:25→15:55)
[2024-07-20] MEDS: KETOROLAC 15 MG/ML VIAL (*BKC) IV PUSH (12:25)
--- NOTE | 2024-07-20 12:52 | WPDHPUPDATE1 ---
History and Physical Update Update Date/Time: 07/20/24 12:52 History and Physical has been reviewed, including an updated exam of the patient. There are NO changes in the patient's condition. Risks, benefits, and alternatives have been discussed and questions answered. Patient agrees to proceed with procedure.
[2024-07-20] MEDS: ceFAZolin 2 GM/D5W 50 ML 2 GM/50 ML BAG IVPB (13:35)
[2024-07-20] MEDS: BUPIVACAINE/EPINEPHRINE 0.5% 30 ML VIAL INFILTRATE (14:24)
--- NOTE | 2024-07-20 14:49 | P.OP_ITS ---
Procedure Note - Detailed Date of Procedure 07/20/24 Pre-op Diagnosis left inguinal hernia Post-op Diagnosis Same (Indirect LIH and small direct LIH) Procedure Performed Laparoscopic left inguinal hernia repair with mesh, da Randee assisted Surgeon Rao Cortez, DO Anesthesia General and Local (0.5% bupivacaine with epinephrine) Indications This is a 63-year-old man who presented with a left groin bulge and pain that developed about 3 months ago. He does not recall any injuries that cause this. He has noticed some increasing discomfort associated with it. He was found to have a reducible left inguinal hernia on exam. There was no evidence of right inguinal hernia on exam. Discussions were made with the patient about treatment options and decision was made to proceed with robotic assisted laparoscopic left inguinal hernia repair with mesh. Findings Robotic assisted laparoscopic left inguinal hernia repair with mesh was performed. The patient was found to have an indirect left inguinal hernia that appeared to be the primary hernia but then there also appeared to be a small direct left inguinal hernia that was a fairly tight ring and had some preperitoneal fat protruding into it. There was no evidence of a right inguinal hernia. A robotic transabdominal preperitoneal approach was utilized for repair of the left inguinal hernia. Once a wide enough preperitoneal pocket was created and the hernia sac was reduced far enough posteriorly, I then placed a large left 3DMax mid mesh overlying the entire left myopectineal orifice. No specimens were obtained for pathology. Description of Procedure Procedure as well as risks, benefits, and alternatives were discussed with the patient. Written consent was obtained and placed in chart prior to procedure. Patient was brought back to surgical suite. He was placed supine on operating table. Time-out was done to confirm patient and procedure. He was then intubated by Anesthesia Department. His abdomen was prepped and draped in ster ile fashion using chlorhexidine prep. 0.5% bupivacaine with epinephrine was infiltrated at each location for incision. An 8 mm incision was made in the left lateral abdomen, and a 5 mm Optiview trocar was advanced through the abdominal layers under direct visualization. Once inside the abdominal cavity, carbon dioxide insufflation was used to create a pneumoperitoneum. A camera was inserted and the abdominal cavity was inspected. The patient was placed in slight Trendelenburg position. An 8 millimeter incision was made on the right lateral abdomen and an 8 millimeter trocar was inserted under direct visualization. Another 8 millimeter incision was made just superior to the umbilicus and an 8 millimeter trocar was inserted under direct visualization. The 5 mm port was then removed and this was replaced with another 8 mm robotic port. The robotic arms were brought up to the patient's bedside and secured to the ports. The camera and instruments were inserted. I then moved over to the robotic console and took control of the camera and instruments. After careful inspection of the abdominal cavity, I began scoring the peritoneum along the left lower quadrant using scissors with electrocautery. The preperitoneal plane was entered and this was carefully dissected caudally along the inferior epigastric vessels. Careful dissection with scissors with electrocautery and blunt dissection was used to continue this dissection. I dissected far enough laterally to allow for mesh placement, and also dissected medially to identify the pubic arch and Kwadwo's ligament. The hernia sac was identified and carefully dissected posteriorly. The cord contents were also identified and the peritoneum was carefully dissected far enough posteriorly to allow for mesh placement. Once an adequate pocket was created, I then placed the mesh within the preperitoneal pocket and carefully unfolded it. The mesh was centered on the hernia defect with adequate overlap circumferentially. The inferior edge of the mesh was inspected to ensure that it was far enough away from the peritoneal edge. The mesh appeared in proper position overlying the entire myopectineal orifice. The mesh was secured using 3-0 Vicryl simple interrupted sutures in Kwdawo's ligament, the superior medial edge, and superior lateral edge of the mesh. The peritoneum was then closed over the mesh using a 3-0 V-lock running absorbable suture. The robotic instruments were removed. The robotic arms were disengaged from the ports and moved away from the bedside. The patient was flattened out in bed, the ports were removed under direct visualization, and the pneumoperitoneum was released. The skin of the incisions was approximated using 4-0 Monocryl subcuticular suture, and Exofin glue was applied on top. The patient was awakened from anesthesia, extubated, and transferred to recovery. Implants Large left 3DMax mid mesh Estimated Blood Loss 5 Complications No immediate complications Condition Stable Disposition Same day [facility] Billing Surgery - Charge Forward: Surgery Billing
[2024-07-20] MEDS: fentaNYL CITRATE INJ (*CRX) 100 MCG/2 ML VIAL 25 MCG IV PUSH ×2 (15:01→15:12)
[2024-07-20] MEDS: oxyCODONE HCL (*CRX) 5 MG TAB IR PO (15:55)
== END 2024-07-20 16:50 | disposition home or self-care (01) ==
PROVIDERS: PCP Nurse Practitioner; Visit Provider Surgery
PROC: 8E0Y4CZ Robotic Assisted Procedure of Lower Extremity, Percutaneous Endoscopic Approach (ICD-10-PCS; CPT 49650; principal; 2024-07-20 13:30)
DX: K40.90 Unilateral inguinal hernia, without obstruction or gangrene, not specified as recurrent (principal); F17.210 Nicotine dependence, cigarettes, uncomplicated; F12.90 Cannabis use, unspecified, uncomplicated
CPT/HCPCS: 49650; S2900; A9270; C1781; J0690; J1100; J1885; J2405; J2704; J3010; J7120

== ENCOUNTER 2025-02-19 17:24 | Emergency (ER) | payer MEDICARE, SELFPAY ==
--- NOTE | ~2025-02-19 | CT_ITS ---
CT HEAD NON-CONTRAST Clinical History: syncope Comparison: None Technique: Unenhanced axial images skull base to vertex Coronal, sagittal reformats CT images acquired with automatic exposure control for dose reduction DLP: 605 mGy-cm Findings: Sulci, ventricles: Unremarkable. No intracerebral hemorrhage. No evidence acute territorial infarct. No mass effect, midline shift. Bony calvarium intact. Visualized paranasal sinuses: Clear. Mastoid air cells: Clear. IMPRESSION: 1. No acute intracranial findings. Reviewed, dictated and finalized at location R. URE FRAMES INSPECTOR
--- NOTE | ~2025-02-19 | XR_ITS ---
EXAMINATION: XR chest 2V 02/19/2025 20:56 INDICATION: Syncope PROCEDURE: PA and lateral views of the chest COMPARISON: Comparison to multiple prior studies sequentially, with oldest reviewed study dated 03/17/2005. FINDINGS: The lungs are clear. The cardiomediastinal silhouette is within normal limits. There are no pleural effusions. There is no pneumothorax suspected. IMPRESSION: 1: NO ACUTE CARDIOPULMONARY DISEASE. Reviewed, dictated and finalized at location O. LINES SUPERVISOR
[2025-02-19 17:25] VITALS: BP 100/59; PULSE 65; RESP 20; TEMP 36.6; O2SAT 97
[2025-02-19 20:26] VITALS: BP 100/84; PULSE 69; RESP 18; TEMP 37.1; O2SAT 95
--- NOTE | 2025-02-19 20:41 | ECG_ITS ---
Test Date: 2025-02-19 21:16:15 Measurements Intervals [place] Rate: 47 P: 65 MT: 193 QRS: 30 QRSD: 89 T: 66 QT: 436 QTc: 388 Interpretive Statements SINUS BRADYCARDIA BASELINE ARTIFACT- I, II, III, AVR, AVL AVF ABNORMAL ECG No previous ECG available for comparison Electronically Signed On 02-20-2025 08:24:37 DUDE WRANGLER by Abel Gant D.O.
--- NOTE | 2025-02-19 20:42 | ED.HEATRA ---
HPI - Head Injury General Chief complaint: Head Injury Stated complaint: fall hit head, LOC Time Seen by Provider: 02/19/25 20:34 Source: patient Mode of arrival: ambulatory Limitations: no limitations History of Present Illness HPI Narrative: This is a 64-year-old male that presents to the emergency department after syncopal episode. Reports he has any anything today. He drink a beer. He started to feel unwell with some nausea. He walked outside, he started to feel lightheaded. He then passed out. He did hit his head. Reports a mild headache. Denies neck pain, chest pain, focal numbness or weakness. Related Data Home Medications ?Medication ?Instructions ?Recorded ?Confirmed ?Last Taken ?Type ibuprofen 200 mg tablet 400 mg PO Q6H PRN Pain 08/29/23 07/30/24 2 Weeks Ago History ~08/26/23 Allergies Allergy/AdvReac Type Severity Reaction Status Date / Time No Known Allergies Allergy Mild Verified 02/19/25 17:28 Review of Systems Review of Systems: All systems reviewed & are unremarkable except as noted in HPI and below PMFSH Past Medical History Medical History (Updated 02/19/25 @ 22:50 by Ruthann Wick PA-C) Collar bone fracture Renal disease Ulcer GERD (gastroesophageal reflux disease) Low serum HDL Gastro-esophageal reflux disease without esophagitis Hyperglycemia Aftercare following surgery (02/12/19) Acute medial meniscus tear of right knee Arthritis Surgical History Surgical History (Updated 07/30/24 @ 09:51 by Mirella Maloney CMA) Hx of left inguinal hernia repair laparoscopic LIH repair with mesh, da Randee assisted 07/14/24 Rao Cortez DO H/O arthroscopy of left knee History of left knee surgery Family History Family History Mother Patient's mother is in good health Sibling Patient's sister is in good health Father Family history of Parkinson's disease Kidney stones Social History Social History Smoking packs per day: 0.25 Smoking cigarettes per day: 5.0 Years smoked: 15 Smoking pack-years: 3.75 Smoking status: Current every day smoker Tobacco type: cigarettes Second hand tobacco smoke exposure: Yes Alcohol intake: current Drinks per week: 8 Alcohol use details: socially Substance use: current Substance use type: marijuana Other substance usage details: Gummies and and smoke occasionally Lack of Transportation: No Lack of Food: Never True Current Housing: I Have Housing Concerned About Future Housing: No Difficulty Paying Gas/Electric Bills: No Difficulty Paying for Meds: No Currently Unemployed: No Education: Trade/Vocational Certificate Difficulty w/ Childcare or Family Care: No Living arrangements: with family Additional living arrangements comments: Occupation/Education: occupation 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 Gender identity (if verbalized by the patient): Male Spiritual care concerns: No Exam Narrative: GENERAL: Well-appearing, well-nourished, and in no acute distress. HEAD: Normocephalic. Abrasion over the right forehead EYES: PERRLA and EOMI. ENT: Nares clear, no rhinorrhea or epistaxis. Mucous membranes moist. Oropharynx without tonsillar hypertrophy exudate or other lesions. Bilateral TMs pearly [place] non-bulging NECK: Supple. No adenopathy or masses. No midline spinal tenderness CHEST: Clear to auscultation. No respiratory distress. No wheezes rales or rhonchi HEART: Regular rate and rhythm. No murmur heard. Normal peripheral pulses. EXTREMITIES: Normal range of motion. No edema or obvious deformity. SKIN: Warm, dry, no rash. NEURO: No focal deficits. Alert and oriented x3. Cranial nerves 2-12 grossly intact PSYCH: Normal mood and affect Course Vital Signs Vital signs: Vital Signs Temperature 97.8 F 02/19/25 17:25 Pulse Rate 65 02/19/25 17:25 Respiratory Rate 20 02/19/25 17:25 Blood Pressure 100/59 L 02/19/25 17:25 Pulse Oximetry 97 02/19/25 17:25 Oxygen Delivery Room Air 02/19/25 17:25 Temperature 98.4 F 02/19/25 21:08 Pulse Rate 55 L 02/19/25 21:08 Respiratory Rate 20 02/19/25 21:08 Blood Pressure 107/78 02/19/25 21:08 Pulse Oximetry 93 02/19/25 21:08 Oxygen Delivery Room Air 02/19/25 17:25 MDM MDM Narrative Medical decision making narrative: Patient presents to the ER after a syncopal episode today. Patient's vitals are stable. He is neurologically intact. CBC and metabolic panel without concerning findings. EKG without concerning changes, baseline troponin is negative. Chest x-ray without acute cardiopulmonary abnormality. CT brain without acute findings. [place] syncope risk score makes him very low risk. Instructed on close follow-up with PCP. Given warnings to return to the ER Differential Diagnosis Differential Diagnosis: vasovagal syncope, dehydration, electrolyte derangement, arrhythmia, concussion, subdural hemorrhage Lab Data MDM Lab Attestation statement: I personally reviewed the patient's lab results. 02/19/25 20:48 02/19/25 20:48 Labs: Lab Results 02/19/25 Range/Units 20:48 WBC 10.2 H (4.5-10.0) K/mm3 RBC 4.93 (4.6-6.20) M/mm3 Hgb 14.7 (14.0-18.0) g/dL Hct 42.9 (42.0-52.0) % MCV 87.0 (80-100) fl MCH 29.8 (26-34) pg MCHC 34.3 (32-36) g/dl RDW 12.6 (11.5-14.5) % Plt Count 211 (150-375) k/mm3 MPV 9.4 (7.4-10.4) fl Immature Gran % (Auto) 0.3 (0-0.5) % Neut % (Auto) 87.4 H (45.5-73.1) % Lymph % (Auto) 7.1 L (18.3-44.2) % [place] % (Auto) 4.7 (2.6-8.5) % Eos % (Auto) 0.3 (0-4.4) % Baso % (Auto) 0.2 (0.2-1.2) % Lymph # (Auto) 0.73 L (0.9-3.2) K/mm3 [place] # (Auto) 0.5 (0.1-0.6) K/mm3 Eos # (Auto) 0.0 (0-0.3) K/mm3 Baso # (Auto) 0.0 (0.0-0.1) K/mm3 Abs Immat Gran (auto) 0.03 (0.00-0.031) K/mm3 Absolute Neuts (auto) 8.9 H (1.3-6.7) K/mm3 Absolute Nucleated RBC 0.000 (0.0-0.012) K/mm3 Nucleated RBC % 0.0 (0.0-0.2) % Sodium 134 L (137-145) mmol/L Potassium 4.0 (3.4-5.0) mmol/L Chloride 101 (98-107) mmol/L Carbon Dioxide 27 (22-30) mmol/L Anion Gap 6 (4-12) mmol/L BUN 14 (9-20) mg/dL Creatinine 0.77 (0.7-1.3) mg/dL Estim Creat Clear Calc 87 ml/min Estimated GFR > 60 (59 - ) Glucose 157 H (65-110) mg/dL Calcium 9.1 (8.4-10.2) mg/dL Total Bilirubin 0.8 (0.2-1.3) mg/dL AST 32 (17-59) U/L ALT 29 (6-50) U/L Alkaline Phosphatase 63 (38-126) U/L Troponin I < 0.012 (0.000-0.034) ng/mL Total Protein 7.8 (6.3-8.2) g/dL Albumin 4.4 (3.5-5.1) g/dL Imaging Data Radiologist's impression: CT brain: Mild cerebral atrophy. Brain is otherwise unremarkable. No acute large vessel infarct or intracranial hemorrhage. Chest x-ray: The heart and mediastinum are within normal limits. Lungs are well inflated and clear. No infiltrate or consolidation. No pneumothorax or pleural effusion. ECG Data EKG #1: ECG completion date: 02/19/25 bradycardia, sinus rhythm, no ST changes and normal QT Critical Care Time Critical Care Time Critical Care Time: No Discharge Plan Discharge Clinical Impression: Syncope Qualifiers: Syncope type: unspecified Qualified Code(s): R55 - Syncope and collapse Head injury Qualifiers: Encounter type: initial encounter Qualified Code(s): S09.90XA - Unspecified injury of head, initial encounter Patient Disposition: Home Condition: Stable Instructions: Syncope (ED), Concussion (ED) Additional Instructions: Return to the emergency department if you experience fever, chest pain, shortness of breath, abdominal pain with nausea and vomiting, weakness, numbness, or any other symptoms that are concerning to you. Rest. Remain well hydrated. Tylenol or Ibuprofen as needed for pain Follow up with your primary care doctor Patient Language: Frisian Prescriptions: No Action ibuprofen 200 mg Tablet 400 mg PO Q6H PRN (Reason: Pain) Follow-up/Referrals: Roberto Rosas APRN [Primary Care Provider, Internal Medicine]
[2025-02-19 20:53] LABS: Hematocrit 42.9 % (42.0-52.0); Hemoglobin 14.7 g/dL (14.0-18.0); Immature Granulocyte Percent A 0.3 % (0-0.5); Lymphocytes Absolute Auto 0.73 K/mm3 (0.9-3.2); Mean Corpuscular HGB Conc 34.3 g/dl (32-36); Mean Corpuscular Hemoglobin 29.8 pg (26-34); Mean Corpuscular Volume 87.0 fl (80-100); Nucleated Red Blood Cells Absolute Auto 0.000 K/mm3 (0.0-0.012); Nucleated Red Blood Cells Perc 0.0 % (0.0-0.2); Platelet Count Result 211 k/mm3 (150-375); Red Blood Count 4.93 M/mm3 (4.6-6.20); White Blood Count 10.2 K/mm3 (4.5-10.0)
[2025-02-19 21:02] LABS: Alanine Aminotransferase 29 U/L (6-50); Albumin Level 4.4 g/dL (3.5-5.1); Alkaline Phosphatase 63 U/L (38-126); Anion Gap 6 mmol/L (4-12); Aspartate Amino Transferase 32 U/L (17-59); Bilirubin,Total 0.8 mg/dL (0.2-1.3); Blood Urea Nitrogen 14 mg/dL (9-20); Calcium 9.1 mg/dL (8.4-10.2); Carbon Dioxide 27 mmol/L (22-30); Chloride 101 mmol/L (98-107); Estimated CRCL calculation 87 ml/min; Estimated Glomerular Filt Rate > 60; Glucose 157 mg/dL (65-110); Potassium 4.0 mmol/L (3.4-5.0); Sodium 134 mmol/L (137-145); Total Protein 7.8 g/dL (6.3-8.2)
[2025-02-19] MEDS: SODIUM CHLORIDE 0.9% IV 1,000 ML 999 ML IV CONT (21:06)
[2025-02-19 21:08] VITALS: BP 107/78; PULSE 55; RESP 20; TEMP 36.9; O2SAT 93
[2025-02-19 21:14] LABS: Troponin I < 0.012 ng/mL (0.000-0.034)
[2025-02-19 22:52] VITALS: BP 115/78; PULSE 56; RESP 18; TEMP 36.9; O2SAT 95
== END 2025-02-19 22:55 | disposition home or self-care (01) ==
PROVIDERS: Emergency Provider Physician Assistant; PCP Nurse Practitioner
DX: R55 Syncope and collapse (principal); S00.81XA Abrasion of other part of head, initial encounter; N28.9 Disorder of kidney and ureter, unspecified; K21.9 Gastro-esophageal reflux disease without esophagitis; M19.90 Unspecified osteoarthritis, unspecified site; F17.210 Nicotine dependence, cigarettes, uncomplicated; W18.39XA Other fall on same level, initial encounter
CPT/HCPCS: 36415; 70450; 71046; 80053; 84484; 85025; 93005; 96360; 99284; J7030